=== PATIENT | female | born 1955 | race Caucasian/White ===

== ENCOUNTER → 2019-05-02 | Outpatient (CLI) | payer OTHER ==
[~2019-05-02] MED LIST: ADVAIR 500-501 EACH INH; ALBUTEROL INH INH; ALBUTEROL NEB INH; COLACE100 MG PO; LIDODERM 5%1 PATCH TP; METAMUCIL283 GM PO; MOM PO; OXYCONTIN10 M1 PO; PERCOCET 5-3251 EACH PO; REMERON15 MG PO; SINGULAIR 10 MG10 M1 PO; SPIRIVA INH; THEOPHYLLINE S200 M1 PO; XANAX 0.5 MG0.5 MG PO; ZANTAC 150MG T150 M1 PO
== END ==
LOC: RAD 08:37
DX: J84.10 Pulmonary fibrosis, unspecified (principal); J44.9 Chronic obstructive pulmonary disease, unspecified

== ENCOUNTER → 2020-05-18 | Outpatient (CLI) | payer OTHER | LOC: CAT 05-11 16:21 | PROVIDERS: ATTEND Internal Medicine | DX: Z12.2 Encounter for screening for malignant neoplasm of respiratory organs (principal); Z87.891 Personal history of nicotine dependence ==

== ENCOUNTER → 2021-05-24 | Outpatient (CLI) | payer OTHER | LOC: CAT 08:57 | PROVIDERS: ATTEND Internal Medicine | DX: R91.8 Other nonspecific abnormal finding of lung field (principal); Z12.2 Encounter for screening for malignant neoplasm of respiratory organs; I25.10 Atherosclerotic heart disease of native coronary artery without angina pectoris; Z87.891 Personal history of nicotine dependence ==